=== PATIENT | male | born 1990 | race Caucasian/White ===

== ENCOUNTER 2017-10-14 14:36 | Emergency (ER) | payer MEDICAID ==
[~2017-10-14] VITALS: Ht 167.6 cm; Wt 65.9 kg
[~2017-10-14 14:36] MED LIST: CLOT12CR TOP; HYDR-569 PO; ONDA4TAB6 PO; SUCR1ORA2 PO
[2017-10-14 15:11] VITALS: BP 148/88
[2017-10-14] MEDS ORDERED: HYDR-3686 PO (15:33)
[2017-10-14] MEDS ORDERED: ONDA4TAB9 SL (15:33)
[2017-10-14] MEDS ORDERED: NICO-687 TOP (15:54)
== END 2017-10-14 15:53 | disposition home or self-care (01) ==
LOC: ER 14:37
DX: F15.10 Other stimulant abuse, uncomplicated (principal); F12.10 Cannabis abuse, uncomplicated; Z02.89 Encounter for other administrative examinations; Z56.0 Unemployment, unspecified; Z79.899 Other long term (current) drug therapy
CPT/HCPCS: 99283

== ENCOUNTER 2018-06-03 13:28 | Emergency (ER) | payer MEDICAID ==
[~2018-06-03] VITALS: Ht 167.6 cm; Wt 60.0 kg
[~2018-06-03 13:28] MED LIST changes: +GUAI1TBM19 PO
[2018-06-03 13:32] VITALS: BP 121/83
== END 2018-06-03 14:47 | disposition left against medical advice (07) ==
LOC: ER 13:29
DX: L08.9 Local infection of the skin and subcutaneous tissue, unspecified (principal); Z53.21 Procedure and treatment not carried out due to patient leaving prior to being seen by health care provider

== ENCOUNTER 2018-07-14 15:29 | Emergency (ER) | payer MEDICAID ==
[~2018-07-14] VITALS: Ht 167.6 cm; Wt 69.7 kg
[~2018-07-14 15:29] MED LIST changes: +HYDR-4383 PO; -HYDR-569 PO
[2018-07-14 15:33] VITALS: BP 129/85
== END 2018-07-14 16:29 | disposition home or self-care (01) ==
LOC: ER 15:30
DX: Z02.89 Encounter for other administrative examinations (principal); F15.10 Other stimulant abuse, uncomplicated; F12.90 Cannabis use, unspecified, uncomplicated; Z56.0 Unemployment, unspecified; Z79.899 Other long term (current) drug therapy
CPT/HCPCS: 99281

== ENCOUNTER 2018-09-03 17:31 | Emergency (ER) | payer MEDICAID ==
[~2018-09-03] VITALS: Ht 167.6 cm; Wt 74.5 kg
[2018-09-03 17:49] VITALS: BP 125/81
[2018-09-03] MEDS ORDERED: LIDOcaine 1.5% w/epinephrine 1:200,000 5ml ampul IJ ONE (19:00)
[2018-09-03] MEDS ORDERED: LIDOcaine 1% w/epiNEPHrine 1:200,000 30ml vial IJ ONE (19:05)
[2018-09-03] MEDS ORDERED: CEPH-572 PO (19:18)
== END 2018-09-03 20:15 | disposition home or self-care (01) ==
LOC: ER 17:32
DX: L03.012 Cellulitis of left finger (principal)
CPT/HCPCS: 10060; 99283; J3490

== ENCOUNTER 2018-11-30 15:44 | Emergency (ER) | payer MEDICAID ==
[~2018-11-30] VITALS: Ht 167.6 cm; Wt 71.4 kg
[2018-11-30 16:09] VITALS: BP 119/79
== END 2018-11-30 19:06 | disposition left against medical advice (07) ==
LOC: ER 15:45
DX: S90.821A Blister (nonthermal), right foot, initial encounter (principal); T69.021A Immersion foot, right foot, initial encounter; M79.671 Pain in right foot; M79.672 Pain in left foot; R35.0 Frequency of micturition; F12.90 Cannabis use, unspecified, uncomplicated; F15.90 Other stimulant use, unspecified, uncomplicated; Z56.0 Unemployment, unspecified; Z53.21 Procedure and treatment not carried out due to patient leaving prior to being seen by health care provider; W23.0XXA Caught, crushed, jammed, or pinched between moving objects, initial encounter; Y93.89 Activity, other specified; Y92.89 Other specified places as the place of occurrence of the external cause; Y99.8 Other external cause status
CPT/HCPCS: 99281

== ENCOUNTER 2019-07-23 19:09 | Emergency (ER) | payer MEDICAID, OTHER ==
[~2019-07-23] VITALS: Ht 167.6 cm; Wt 76.0 kg
[2019-07-23] MEDS ORDERED: LIDOcaine 1% 30ml preserv. free vial IJ ONE (19:40)
[2019-07-23] MEDS ORDERED: IBUP-1984 PO (19:53)
[2019-07-23] MEDS ORDERED: SULF1TAB49 PO (19:53)
[2019-07-23] MEDS: TETanus/Pertussis (Acell)/Diphther VAC/PF (Tdap-Adult) 0.5ml syringe IM ONE ×2 (19:55→20:01)
== END 2019-07-23 20:05 | disposition home or self-care (01) ==
LOC: ER 19:09
DX: L02.512 Cutaneous abscess of left hand (principal); F12.90 Cannabis use, unspecified, uncomplicated; F15.90 Other stimulant use, unspecified, uncomplicated; Z56.0 Unemployment, unspecified
CPT/HCPCS: 26010; 99283

== ENCOUNTER 2019-08-18 05:16 | Emergency (ER) | payer MEDICAID ==
[~2019-08-18] VITALS: Ht 167.6 cm; Wt 70.9 kg
[2019-08-18 05:18] VITALS: BP 148/82
--- NOTE | 2019-08-18 05:27 | NUR ---
After I was done triaging him, he said he wanted to go get his girlfriend and bring her to the room. I stood at doorway into lobby waiting for him, he went outside. I stood there for awhile. Then I went outside, he isn't anywhere. I hollered his name, there is no answer.
== END 2019-08-18 06:13 | disposition left against medical advice (07) ==
LOC: ER 05:16
DX: L03.011 Cellulitis of right finger (principal); F12.90 Cannabis use, unspecified, uncomplicated; F15.90 Other stimulant use, unspecified, uncomplicated; Z56.0 Unemployment, unspecified
CPT/HCPCS: 99281

== ENCOUNTER 2021-01-08 12:45 | Emergency (ER) | payer MEDICAID ==
[~2021-01-08] VITALS: Ht 167.6 cm; Wt 63.6 kg
[2021-01-08 13:00] VITALS: BP 118/75
[2021-01-08 15:02] LABS: CLARITY,URINE SLIGHTLY CLOUDY (Clear); COLOR,URINE YELLOW (Yellow); GLUCOSE, URINE NEGATIVE (Neg); KETONES,URINE NEGATIVE (Neg); LEUKOCYTE ESTERASE ,URINE NEGATIVE (Neg); NITRITES, URINE NEGATIVE (Neg); OCCULT BLOOD,URINE NEGATIVE (Neg); PH,URINE 5.5 (4.8-8.0); PROTEIN,URINE TRACE mg/dl (Neg)
[2021-01-08 15:03] LABS: UA COLLECTION TYPE CLN CATCH MIDSTREAM
[2021-01-08 15:03] LABS: BASOPHILS % (AUTO) 0.5 % (0-1); EOSINOPHILS # (AUTO) 0.1 X10'3 (0-0.9); EOSINOPHILS % (AUTO) 2.1 % (0-6); HEMOGLOBIN 14.3 g/dl (14.0-17.9); LYMPHOCYTES # (AUTO) 1.5 X10'3 (1.1-4.8); MEAN CORPUSCULAR HEMOGLOBIN 29.2 PG (27.0-31.0); MEAN CORPUSCULAR HGB CONC 33.3 g/dL (33.0-36.5); MEAN CORPUSCULAR VOLUME 87.9 FL (78-98); MEAN PLATELET VOLUME 7.3 FL (7.4-10.4); MONOCYTES # (AUTO) 0.9 X10'3 (0-0.9); MONOCYTES % (AUTO) 12.9 % (2-12); NEUTROPHILS # (AUTO) 4.3 X10'3 (1.8-7.7); NEUTROPHILS % (AUTO) 62.5 % (42-75); PLATELET COUNT 354 X10'3 (140-440); RED BLOOD COUNT 4.89 X10'6 (4.70-6.10); RED CELL DISTRIBUTION WIDTH 13.4 % (11.5-14.5); WHITE BLOOD COUNT 6.9 X10'3 (4.5-11.0)
[2021-01-08 15:09] LABS: MUCUS STRANDS MODERATE /LPF (Neg); SQUAMOUS EPITHELIAL CELL,UR FEW /LPF (FEW); WBC,URINE 20-30 /HPF (0-4)
[2021-01-08 15:10] LABS: BACTERIA,URINE FEW /HPF (Neg); RBC,URINE 0-2 /HPF (0-2)
[2021-01-08 15:15] LABS: ALANINE AMINOTRANSFERASE 31 U/L (12-78); ALBUMIN 3.8 G/DL (3.4-5.0); ALBUMIN/GLOBULIN RATIO 1.1 (1.1-1.5); ALKALINE PHOSPHATASE 97 IU/L (46-116); ANION GAP 6 (8-16); ASPARTATE AMINO TRANSFERASE 23 U/L (10-37); BILIRUBIN,TOTAL 0.2 MG/DL (0.1-1.0); BLOOD UREA NITROGEN 21 MG/DL (7-18); BUN/CREATININE RATIO 19.6 (5.4-32.0); CHLORIDE 106 MMOL/L (99-107); CREATININE 1.07 MG/DL (0.60-1.10); GLUCOSE 71 MG/DL (70-104); POTASSIUM 4.2 MMOL/L (3.5-5.1); SODIUM 143 MMOL/L (135-145); TOTAL CARBON DIOXIDE 31.1 MMOL/L (24-32); TOTAL PROTEIN 7.4 G/DL (6.4-8.2); eGFR 81 ML/MIN
[2021-01-08] MEDS ORDERED: CefTRIAXone 1000mg IM Kit (w/lidocaine diluent) IM ONE (15:15)
[2021-01-08] MEDS ORDERED: azithromycin 250mg tablet PO ONE (15:15)
[2021-01-08] MEDS ORDERED: CEPH-585 PO (15:41)
== END 2021-01-08 15:53 | disposition home or self-care (01) ==
LOC: ER 12:46
DX: N39.0 Urinary tract infection, site not specified (principal); E86.0 Dehydration; F17.200 Nicotine dependence, unspecified, uncomplicated; F12.90 Cannabis use, unspecified, uncomplicated; F15.90 Other stimulant use, unspecified, uncomplicated; F11.90 Opioid use, unspecified, uncomplicated; Z56.0 Unemployment, unspecified; Z72.89 Other problems related to lifestyle; Z79.899 Other long term (current) drug therapy
CPT/HCPCS: 36415; 80053; 81001; 85025; 87088; 87491; 87591; 96372; 99283; J0696

== ENCOUNTER 2023-01-24 16:35 | Emergency (ER) | payer MEDICAID ==
[~2023-01-24] VITALS: Ht 167.6 cm; Wt 75.0 kg
[2023-01-24 17:00] VITALS: BP 126/77
[2023-01-24] MEDS ORDERED: CLIN150C2 PO (17:04)
--- NOTE | 2023-01-24 17:04 | NUR ---
#11 blade lanced per PA and it drained. Pt linnea procedure well. He is holding a guaze pad to it.
== END 2023-01-24 17:10 | disposition home or self-care (01) ==
LOC: ER 16:36
DX: K12.2 Cellulitis and abscess of mouth (principal); F12.90 Cannabis use, unspecified, uncomplicated; F15.20 Other stimulant dependence, uncomplicated; Z56.0 Unemployment, unspecified
CPT/HCPCS: 10060; 42000; 99283; 99284; A6449

== ENCOUNTER 2023-11-15 09:13 | Emergency (ER) | payer MEDICAID ==
[~2023-11-15] VITALS: Ht 167.6 cm; Wt 47.9 kg
[2023-11-15 09:43] VITALS: BP 136/80; PULSE 92; RESP 18; TEMP 97.8; O2SAT 100
[2023-11-15] MEDS ORDERED: CLIN-97 PO (09:46)
== END 2023-11-15 10:07 | disposition home or self-care (01) ==
LOC: ER 09:13
DX: K04.7 Periapical abscess without sinus (principal); F12.90 Cannabis use, unspecified, uncomplicated; F15.90 Other stimulant use, unspecified, uncomplicated; F11.90 Opioid use, unspecified, uncomplicated; Z56.0 Unemployment, unspecified; Z72.89 Other problems related to lifestyle; Z79.899 Other long term (current) drug therapy
CPT/HCPCS: 99283

== ENCOUNTER 2023-12-30 09:59 | Outpatient (CLI) | payer MEDICAID ==
[~2023-12-30 09:59] MED LIST changes: +CLIN-97 PO
== END 2023-12-30 23:59 | disposition home or self-care (01) ==
LOC: RAD 09:59
PROVIDERS: ATTEND Nurse Practitioner Family
DX: R33.9 Retention of urine, unspecified (principal)
CPT/HCPCS: 76770

== ENCOUNTER 2024-01-08 15:42 | Emergency (ER) | payer MEDICAID ==
[~2024-01-08] VITALS: Ht 167.6 cm; Wt 77.2 kg
[2024-01-08 15:46] VITALS: BP 134/85; PULSE 95; RESP 16; TEMP 98.2; O2SAT 100
[2024-01-08] MEDS ORDERED: AMOX500C2 PO (17:40)
[2024-01-08] MEDS: amoxicillin 250mg capsule PO ONE (17:55)
== END 2024-01-08 18:03 | disposition home or self-care (01) ==
LOC: ER 15:42
DX: K08.89 Other specified disorders of teeth and supporting structures (principal); K04.7 Periapical abscess without sinus; K02.9 Dental caries, unspecified; F12.90 Cannabis use, unspecified, uncomplicated; F15.90 Other stimulant use, unspecified, uncomplicated; F11.90 Opioid use, unspecified, uncomplicated; Z72.89 Other problems related to lifestyle; Z79.899 Other long term (current) drug therapy; Z79.2 Long term (current) use of antibiotics
CPT/HCPCS: 99283